=== PATIENT | male | born 1965 | race Caucasian/White ===

== ENCOUNTER 2018-09-28 15:35 | Observation (INO) | payer OTHER ==
[~2018-09-28] VITALS: Ht 180.3 cm; Wt 95.1 kg
[2018-09-28] MEDS ORDERED: ASPIRIN 81 MG TABLET CHEW PO ONE (16:00)
[2018-09-28] MEDS ORDERED: SODIUM CHLORIDE FLUSH 10ML SYR IVF ONE (16:00)
[2018-09-28 16:15] LABS: BASOPHILS # (AUTO) 0.03 x10^3/uL (0-0.1); BASOPHILS % (AUTO) 0 % (0-1); EOSINOPHILS # (AUTO) 0.02 x10^3/uL (0-0.4); EOSINOPHILS % (AUTO) 0 % (1-7); LYMPHOCYTES # (AUTO) 1.17 x10^3/uL (1-3.4); LYMPHOCYTES % (AUTO) 15 % (22-44); MD NO; MEAN CORPUSCULAR HGB CONC 33.9 g/dL (33.2-36.2); MEAN CORPUSCULAR VOLUME 91.6 fL (81-97); MEAN PLATELET VOLUME 7.4 fL (7.4-10.4); MONOCYTES # (AUTO) 0.71 x10^3/uL (0.2-0.8); MONOCYTES % (AUTO) 9 % (2-9); NEUTROPHILS # (AUTO) 5.77 x10^3/uL (1.8-6.8); NEUTROPHILS % (AUTO) 75 % (42-75); PLATELET COUNT 225 x10^3/uL (130-400); RED BLOOD COUNT 5.19 x10^6/uL (4.38-5.82); RED CELL DISTRIBUTION WIDTH 14.1 % (9.4-14.8)
[2018-09-28] MEDS ORDERED: ASPIRIN 81 MG TABLET CHEW ONE (16:20)
[2018-09-28 16:27] LABS: ALBUMIN 3.9 g/dL (3.4-5.0); ANION GAP 8 mmol/L (5-15); CALCIUM 8.8 mg/dL (8.5-10.1); CHLORIDE 106 mmol/L (98-107)
[2018-09-28] MEDS ORDERED: LABETALOL 5MG/ML, 20ML IVPush ONE (16:30)
[2018-09-28 16:33] LABS: ALANINE AMINOTRANSFERASE 52 U/L (12-78); ALKALINE PHOSPHATASE 103 U/L (45-117); TOTAL PROTEIN 7.5 g/dL (6.4-8.2); TROPONIN I < 0.015 ng/mL (0.000-0.045)
[2018-09-28] MEDS ORDERED: LABETALOL 20 MG/4 ML ONE (16:36)
[2018-09-28] MEDS ORDERED: SODIUM CHLORIDE 0.9% 1,000 ML IV SCH (19:37)
[2018-09-28 20:00] VITALS: BP 165/103
[2018-09-28] MEDS ORDERED: NITROGLYCERIN 0.4 MG BOTTLE (25 TABS) SL PRN (20:00)
[2018-09-28] MEDS ORDERED: hydrALAzine 20 MG/ML, 1ML IVPush PRN (20:00)
[2018-09-28] MEDS ORDERED: POLYETHYLENE GLYCOL 17 GM PACKET PO PRN (20:00)
[2018-09-28] MEDS ORDERED: ONDANSETRON 2MG/ML, 2ML IVPush PRN (20:00)
[2018-09-28] MEDS ORDERED: ACETAMINOPHEN 325 MG TABLET PO PRN (20:00)
[2018-09-28] MEDS ORDERED: ZOLPIDEM 5MG TABLET PO PRN (20:00)
[2018-09-28] MEDS ORDERED: LABETALOL 5MG/ML, 20ML IVPush PRN (20:00)
[2018-09-28] MEDS: HEPARIN 5,000 UNITS/ML, 1ML SQ SCH (20:36)
[2018-09-28 21:42] VITALS: BP 145/97
[2018-09-28 23:37] LABS: TROPONIN I 0.034 ng/mL (0.000-0.045)
[2018-09-29] VITALS (7 sets, daily range): BP systolic 127–167; BP diastolic 66–108
[2018-09-29] MEDS: ASPIRIN 325 MG TABLET EC PO SCH (05:26)
[2018-09-29 06:05] LABS: CHOLESTEROL, TOTAL 235 mg/dL (140-239); TRIGLYCERIDES 225 mg/dL (50-200); VLDL CHOLESTEROL 45 mg/dL (0-25)
[2018-09-29 06:08] LABS: HDL CHOL % 25 % (26-37); HDL CHOLESTEROL (DIRECT) 59 mg/dL (40-60); LDL CHOLESTEROL,CALCULATED 131 mg/dL (54-169); LDL/HDL RATIO 2.2 (0.5-3.0); TROPONIN I 0.022 ng/mL (0.000-0.045)
[2018-09-29] MEDS: HEPARIN 5,000 UNITS/ML, 1ML SQ SCH ×2 (08:23→20:34)
[2018-09-29] MEDS: AMLODIPINE 5 MG TABLET PO SCH ×2 (12:16→12:19)
[2018-09-29] MEDS ORDERED: ATORVASTATIN 40 MG TABLET PO SCH (21:00)
[2018-09-30 00:43] VITALS: BP 118/79
[2018-09-30] MEDS: ASPIRIN 325 MG TABLET EC PO SCH (05:04)
[2018-09-30 06:50] VITALS: BP 160/102
[2018-09-30] MEDS: AMLODIPINE 5 MG TABLET PO SCH (08:02)
[2018-09-30] MEDS: HEPARIN 5,000 UNITS/ML, 1ML SQ SCH (08:02)
[2018-09-30 08:49] VITALS: BP 157/88
[2018-09-30] MEDS ORDERED: REGADENOSON 0.4 MG/5 ML SYRINGE ONE (09:33)
[2018-09-30 12:01] LABS: ANION GAP 3 mmol/L (5-15); CALCIUM 9.1 mg/dL (8.5-10.1); CHLORIDE 109 mmol/L (98-107); CREATININE 1.63 mg/dL (0.7-1.3)
[2018-09-30 12:05] VITALS: BP 150/90
[2018-09-30] MEDS ORDERED: HYDR-3343 PO (14:02)
[2018-09-30] MEDS ORDERED: ATOR40TA78 PO (14:02)
[2018-09-30] MEDS ORDERED: AMLO5TAB7 PO (14:02)
[2018-09-30 14:40] VITALS: BP 147/90
== END 2018-09-30 15:02 | disposition home or self-care (01) ==
LOC: ED 18:22 → EDIP 19:03 → 5SO 19:47
PROVIDERS: ADMIT Hospitalist; ATTEND Hospitalist
DX: R07.89 Other chest pain (principal); I10 Essential (primary) hypertension; F17.290 Nicotine dependence, other tobacco product, uncomplicated; E78.5 Hyperlipidemia, unspecified; N17.9 Acute kidney failure, unspecified; Z82.49 Family history of ischemic heart disease and other diseases of the circulatory system; Z91.14 Patient's other noncompliance with medication regimen
CPT/HCPCS: 36415; 71045; 78452; 80048; 80053; 80061; 84484; 85025; 93005; 93017; 93306; 96372; 96374; 96375; 96376; 99284; A9502; C9898; G0378; J0360; J1644; J2785; J7030

== ENCOUNTER 2018-10-12 03:51 | Inpatient (IN) | payer OTHER ==
[~2018-10-12] VITALS: Ht 180.3 cm; Wt 96.6 kg
[~2018-10-12 03:51] MED LIST: AMLO-150 PO; ATOR40TA78 PO; HYDR-3343 PO
[2018-10-12] MEDS ORDERED: IBUPROFEN 200 MG TABLET ONE (04:27)
[2018-10-12] MEDS ORDERED: ONDANSETRON 2MG/ML, 2ML ONE (04:27)
[2018-10-12] MEDS ORDERED: SODIUM CHLORIDE 0.9% 1,000ML IVBOLUS ONE ×2 (04:30→05:30)
[2018-10-12] MEDS ORDERED: ONDANSETRON 2MG/ML, 2ML IVPush ONE (04:30)
[2018-10-12] MEDS ORDERED: IBUPROFEN 200 MG TABLET PO ONE (04:30)
[2018-10-12 04:58] LABS: BASOPHILS % (AUTO) 0 % (0-1); EOSINOPHILS # (AUTO) 0.03 x10^3/uL (0-0.4); EOSINOPHILS % (AUTO) 1 % (1-7); LYMPHOCYTES # (AUTO) 0.14 x10^3/uL (1-3.4); LYMPHOCYTES % (AUTO) 3 % (22-44); MD NO; MEAN CORPUSCULAR HEMOGLOBIN 31.5 pg (27.5-34.5); MEAN CORPUSCULAR HGB CONC 34.4 g/dL (33.2-36.2); MEAN CORPUSCULAR VOLUME 91.7 fL (81-97); MEAN PLATELET VOLUME 7.5 fL (7.4-10.4); MONOCYTES # (AUTO) 0.24 x10^3/uL (0.2-0.8); MONOCYTES % (AUTO) 4 % (2-9); NEUTROPHILS # (AUTO) 5.28 x10^3/uL (1.8-6.8); NEUTROPHILS % (AUTO) 93 % (42-75); PLATELET COUNT 211 x10^3/uL (130-400); RED BLOOD COUNT 4.69 x10^6/uL (4.38-5.82); RED CELL DISTRIBUTION WIDTH 13.8 % (9.4-14.8)
[2018-10-12 05:08] LABS: ALBUMIN 3.5 g/dL (3.4-5.0); ANION GAP 11 mmol/L (5-15); CALCIUM 8.9 mg/dL (8.5-10.1); CHLORIDE 100 mmol/L (98-107); CREATININE 2.58 mg/dL (0.7-1.3)
[2018-10-12] MEDS ORDERED: POTASSIUM CHLORIDE 20 MEQ TAB.ER.PRT PO ONE (05:30)
[2018-10-12 05:34] LABS: RAPID INFLUENZA A Negative (Negative); RAPID INFLUENZA B Negative (Negative)
[2018-10-12] MEDS ORDERED: POTASSIUM CHLORIDE 20 MEQ TAB.ER.PRT ONE (05:41)
[2018-10-12] MEDS ORDERED: AMLO2.5T3 PO (05:47)
[2018-10-12] MEDS ORDERED: HYDR25TA6 PO (05:47)
[2018-10-12] MEDS ORDERED: RED RICE YEAST PO (05:47)
[2018-10-12 06:10] LABS: TROPONIN I 0.021 ng/mL (0.000-0.045)
[2018-10-12] MEDS ORDERED: ONDANSETRON ODT 4 MG PO PRN (07:30)
[2018-10-12] MEDS ORDERED: IBUPROFEN 600 MG TABLET PO PRN (07:30)
[2018-10-12] MEDS ORDERED: hydrALAzine 20 MG/ML, 1ML IVPush PRN (07:30)
[2018-10-12] MEDS ORDERED: LABETALOL 5MG/ML, 20ML IVPush PRN (07:30)
[2018-10-12] MEDS ORDERED: ONDANSETRON 2MG/ML, 2ML IVPush PRN (07:30)
[2018-10-12] MEDS ORDERED: ACETAMINOPHEN 325 MG TABLET PO PRN (07:30)
[2018-10-12 08:00] VITALS: BP 108/67
[2018-10-12 08:19] LABS: MICROSCOPIC AUTO
[2018-10-12 08:22] LABS: CULTURE INDICATED? NO
[2018-10-12] MEDS: NS + 20MEQ KCL 1,000 ML IV SCH ×2 (09:46→18:20)
[2018-10-12] MEDS: HEPARIN 5,000 UNITS/ML, 1ML SQ SCH ×2 (09:46→15:54)
[2018-10-12 12:41] VITALS: BP 126/78
[2018-10-12 13:41] LABS: HEMOGLOBIN A1C 5.5 % (4.2-6.3)
[2018-10-12] MEDS: PIPERACILLIN/TAZO/PMX 2.25GM 50 ML IVPB SCH ×2 (14:53→21:27)
[2018-10-12] MEDS ORDERED: PIPERACILLIN/TAZO/PMX 3.375GM 50 ML IV SCH (15:00)
[2018-10-12] MEDS ORDERED: PHARMACY MAY ADJ FOR RENAL FX MC PRN (15:00)
[2018-10-12] MEDS ORDERED: PIPERACILLIN/TAZO(ZOSYN) 2.25 GM in NS 50 ML IVPB SCH (15:30)
[2018-10-12 20:00] VITALS: BP 124/78
[2018-10-13 02:00] VITALS: BP 143/83
[2018-10-13] MEDS: PIPERACILLIN/TAZO/PMX 2.25GM 50 ML IVPB SCH ×4 (03:17→21:07)
[2018-10-13 05:05] LABS: BASOPHILS % (AUTO) 0 % (0-1); EOSINOPHILS # (AUTO) 0.23 x10^3/uL (0-0.4); EOSINOPHILS % (AUTO) 6 % (1-7); LYMPHOCYTES # (AUTO) 0.44 x10^3/uL (1-3.4); LYMPHOCYTES % (AUTO) 11 % (22-44); MD NO; MEAN CORPUSCULAR HEMOGLOBIN 31.3 pg (27.5-34.5); MEAN PLATELET VOLUME 7.9 fL (7.4-10.4); MONOCYTES # (AUTO) 0.32 x10^3/uL (0.2-0.8); MONOCYTES % (AUTO) 8 % (2-9); NEUTROPHILS # (AUTO) 2.94 x10^3/uL (1.8-6.8); NEUTROPHILS % (AUTO) 75 % (42-75); PLATELET COUNT 155 x10^3/uL (130-400); RED BLOOD COUNT 4.25 x10^6/uL (4.38-5.82); RED CELL DISTRIBUTION WIDTH 14.3 % (9.4-14.8)
[2018-10-13] MEDS: NS + 20MEQ KCL 1,000 ML IV SCH (05:15)
[2018-10-13] MEDS: HEPARIN 5,000 UNITS/ML, 1ML SQ SCH ×3 (05:16→21:07)
[2018-10-13 05:29] LABS: CHLORIDE 104 mmol/L (98-107)
[2018-10-13 05:33] LABS: ANION GAP 7 mmol/L (5-15); CALCIUM 7.6 mg/dL (8.5-10.1); CREATININE 1.99 mg/dL (0.7-1.3)
[2018-10-13 08:00] VITALS: BP 144/72
[2018-10-13 13:10] VITALS: BP 137/86
[2018-10-13 13:35] LABS: RAPID INFLUENZA A Negative (Negative); RAPID INFLUENZA B Negative (Negative)
[2018-10-13] MEDS ORDERED: POTASSIUM CHLORIDE 20 MEQ TAB.ER.PRT PO ONE (15:30)
[2018-10-13 19:21] VITALS: BP 147/99
[2018-10-14 01:17] VITALS: BP 134/91
[2018-10-14] MEDS: PIPERACILLIN/TAZO/PMX 2.25GM 50 ML IVPB SCH (03:36)
[2018-10-14] MEDS: HEPARIN 5,000 UNITS/ML, 1ML SQ SCH (05:33)
[2018-10-14 06:04] LABS: BASOPHILS # (AUTO) 0.02 x10^3/uL (0-0.1); BASOPHILS % (AUTO) 0 % (0-1); EOSINOPHILS # (AUTO) 0.26 x10^3/uL (0-0.4); EOSINOPHILS % (AUTO) 5 % (1-7); LYMPHOCYTES # (AUTO) 0.92 x10^3/uL (1-3.4); LYMPHOCYTES % (AUTO) 18 % (22-44); MD NO; MEAN CORPUSCULAR HEMOGLOBIN 30.8 pg (27.5-34.5); MEAN CORPUSCULAR HGB CONC 33.7 g/dL (33.2-36.2); MEAN CORPUSCULAR VOLUME 91.4 fL (81-97); MEAN PLATELET VOLUME 8.4 fL (7.4-10.4); MONOCYTES # (AUTO) 0.51 x10^3/uL (0.2-0.8); MONOCYTES % (AUTO) 10 % (2-9); NEUTROPHILS # (AUTO) 3.35 x10^3/uL (1.8-6.8); NEUTROPHILS % (AUTO) 66 % (42-75); PLATELET COUNT 164 x10^3/uL (130-400); RED BLOOD COUNT 3.92 x10^6/uL (4.38-5.82); RED CELL DISTRIBUTION WIDTH 13.8 % (9.4-14.8)
[2018-10-14 06:14] LABS: CHLORIDE 109 mmol/L (98-107)
[2018-10-14 06:15] LABS: ANION GAP 6 mmol/L (5-15); CALCIUM 8.5 mg/dL (8.5-10.1); CREATININE 1.97 mg/dL (0.7-1.3)
[2018-10-14 07:10] VITALS: BP 147/92
[2018-10-14] MEDS ORDERED: PHARMACY MAY ADJ FOR RENAL FX MC PRN (08:00)
[2018-10-14] MEDS ORDERED: AMOXICILLIN/CLAV 875-125MG TABLET PO SCH (08:00)
[2018-10-14] MEDS ORDERED: AMOX1TAB12 PO (10:08)
[2018-10-14] MEDS ORDERED: AMLO5TAB4 PO (22:09)
== END 2018-10-14 13:02 | disposition home or self-care (01) | DRG 641 ==
LOC: ED 04:45 → EDIP 05:46 → ICU 07:00 → 3NE 15:17
PROVIDERS: ADMIT Hospitalist; ATTEND Hospitalist
DX: E86.0 Dehydration (principal); R00.0 Tachycardia, unspecified; R50.9 Fever, unspecified; I10 Essential (primary) hypertension; R05 Cough; N28.9 Disorder of kidney and ureter, unspecified; R09.02 Hypoxemia; M79.10 Myalgia, unspecified site; E66.9 Obesity, unspecified; E87.2 Acidosis; Z72.89 Other problems related to lifestyle; Z68.29 Body mass index [BMI] 29.0-29.9, adult
CPT/HCPCS: 36415; 71045; 71250; 76700; 80048; 81001; 82040; 83036; 83605; 83735; 83880; 84100; 84145; 84484; 85025; 87040; 87400; 93005; 96361; 96374; G0378; J1644; J2405; J2543; J3480; Q0162; J7030

== ENCOUNTER 2018-10-14 21:46 | Emergency (ER) | payer OTHER ==
[~2018-10-14] VITALS: Ht 180.3 cm; Wt 96.0 kg
[~2018-10-14 21:46] MED LIST changes: +AMLO2.5T3 PO; +AMOX1TAB12 PO; +HYDR25TA6 PO; +RED RICE YEAST PO
[2018-10-14] MEDS ORDERED: AMLO5TAB4 PO (22:09)
[2018-10-14 23:06] LABS: ALANINE AMINOTRANSFERASE 379 U/L (12-78); ALBUMIN 3.3 g/dL (3.4-5.0); ANION GAP 10 mmol/L (5-15); CHLORIDE 100 mmol/L (98-107); CREATININE 1.91 mg/dL (0.7-1.3)
[2018-10-14 23:09] LABS: ALKALINE PHOSPHATASE 293 U/L (45-117); BILIRUBIN,TOTAL 1.8 mg/dL (0.2-1.0); TOTAL PROTEIN 7.2 g/dL (6.4-8.2)
[2018-10-14 23:12] LABS: MICROSCOPIC INDICATED
[2018-10-14 23:16] LABS: INTERNATIONAL NORMALIZED RATIO 1.07 (0.93-1.1); PROTHROMBIN TIME 11.3 Seconds (9.6-11.5)
[2018-10-14 23:17] LABS: BASOPHILS # (AUTO) 0.01 x10^3/uL (0-0.1); BASOPHILS % (AUTO) 0 % (0-1); EOSINOPHILS # (AUTO) 0.09 x10^3/uL (0-0.4); EOSINOPHILS % (AUTO) 1 % (1-7); LYMPHOCYTES # (AUTO) 0.32 x10^3/uL (1-3.4); LYMPHOCYTES % (AUTO) 4 % (22-44); MD NO; MEAN CORPUSCULAR HEMOGLOBIN 30.6 pg (27.5-34.5); MEAN CORPUSCULAR HGB CONC 33.8 g/dL (33.2-36.2); MEAN CORPUSCULAR VOLUME 90.5 fL (81-97); MEAN PLATELET VOLUME 8.8 fL (7.4-10.4); MONOCYTES # (AUTO) 0.78 x10^3/uL (0.2-0.8); MONOCYTES % (AUTO) 9 % (2-9); NEUTROPHILS # (AUTO) 7.06 x10^3/uL (1.8-6.8); NEUTROPHILS % (AUTO) 86 % (42-75); PLATELET COUNT 190 x10^3/uL (130-400); RED BLOOD COUNT 4.38 x10^6/uL (4.38-5.82); RED CELL DISTRIBUTION WIDTH 13.7 % (9.4-14.8)
[2018-10-14 23:20] LABS: CULTURE INDICATED? YES
[2018-10-14 23:30] VITALS: BP 130/68
== END 2018-10-15 00:12 | disposition home or self-care (01) ==
LOC: ED 22:28
DX: R50.9 Fever, unspecified (principal); I10 Essential (primary) hypertension
CPT/HCPCS: 36415; 71045; 80053; 80074; 81001; 83605; 84145; 85025; 85610; 85730; 86308; 87040; 87086; 93005; 99284